=== PATIENT | female | born 1990 | race Two or more races ===

== ENCOUNTER 2020-12-16 17:18 | Emergency (ER) | payer SELFPAY ==
[~2020-12-16] VITALS: Ht 149.9 cm; Wt 96.3 kg
[2020-12-16 17:27] VITALS: BP 115/67
[2020-12-16] MEDS ORDERED: HYDROcodone/APAP 5/325MG 1 TAB TABLET PO ONE (17:45)
--- NOTE | 2020-12-16 18:18 | PHYS DOC ---
General Adult EDM: Chief Complaint: FOOT INJURY PAIN HPI: HPI: Patient is a 30-year-old female who presents with left foot pain. Patient states "my son threw a toy and hit me on the top of my left foot 3 weeks ago and the pain has not stopped". "Pain is worse when I try and walk or put pressure on my foot". "I thought that the pain would go away but it has not yet, it is a burning sensation". Patient denies taking any pain medication. Patient has full range of motion. Pedal pulses intact. No swelling noted. Patient has a history of diabetes and asthma. Review of Systems: Review of Systems: Constitutional: Denies fever or chills Eyes: Denies change in visual acuity HENT: Denies nasal congestion or sore throat Respiratory: Denies cough or shortness of breath Cardiovascular: Denies chest pain or edema GI: Denies abdominal pain, nausea, vomiting, bloody stools or diarrhea : Denies dysuria Musculoskeletal: Denies back pain or joint pain Integument: Denies rash Neurologic: Denies headache, focal weakness or sensory changes Endocrine: Denies polyuria or polydipsia Lymphatic: Denies swollen glands Psychiatric: Denies depression or anxiety Current Medications: Current Meds: Current Medications Medications (Trade) Dose Ordered Sig/Manuel Start Time Stop Time Status Last Admin Dose Admin Acetaminophen/ Hydrocodone Bitart (Lortab 5/325) 1 tab 1X ONCE 12/16/20 17:45 12/16/20 17:46 UNV Physical Exam: PE: Constitutional: Well developed, well nourished, no acute distress, non-toxic appearance. [] HENT: Normocephalic, atraumatic, bilateral external ears normal, oropharynx moist, no oral exudates, nose normal. [] Eyes: PERRLA, EOMI, conjunctiva normal, no discharge. [] Neck: Normal range of motion, no tenderness, supple, no stridor. [] Cardiovascular:Heart rate regular rhythm, no murmur [] Lungs & Thorax: Bilateral breath sounds clear to auscultation [] Abdomen: Bowel sounds normal, soft, no tenderness, no masses, no pulsatile masses. [] Skin: Warm, dry, no erythema, no rash. [] Back: No tenderness, no CVA tenderness. [] Extremities: Left foot tenderness, no cyanosis, ROM intact, no edema. [] Neurologic: Alert and oriented X 3, normal motor function, normal sensory functi on, no focal deficits noted. [] Psychologic: Affect normal, judgement normal, mood normal. [] EKG: EKG: [] Radiology/Procedures: Radiology/Procedures: []XR FOOT_LEFT 3 VIEWS dated 12/16/2020 5:50 PM. History: Reason: foot pain / Spl. Instructions: / History: No history of trauma is given. Comparison: None. Findings: No fracture or dislocation is seen. Joint spaces appear fairly well maintained. There is no apparent foreign body or destructive process. Impression: 1. No identified acute abnormality. Electronically signed by: Vj Hinton Jr., MD (12/16/2020 8:19 PM) [facility] Heart Score: C/O Chest Pain: No Risk Factors: Risk Factors: DM, Current or recent (<one month) smoker, HTN, HLP, family history of CAD, obesity. Risk Scores: Score 0 - 3: 2.5% MACE over next 6 weeks - Discharge Home Score 4 - 6: 20.3% MACE over next 6 weeks - Admit for Clinical Observation Score 7 - 10: 72.7% MACE over next 6 weeks - Early Invasive Strategies Course & Med Decision Making: Course & Med Decision Making Pertinent Labs and Imaging studies reviewed. (See chart for details) [] 30-year-old female presents with left foot pain for 3 weeks. Patient reports that her son threw a toy and hit her on the top of her left foot. Pain is worse with ambulation or bearing weight. Pedal pulses intact. No swelling. Patient has full range of motion. Patient given hydrocodone 5/325 for pain. X-ray of left foot is negative for fracture. Discussed x-ray results with patient. Rice instructions given. Advised patient to follow-up with her PCP if pain continues. Ibuprofen and Tylenol at home for discomfort. Patient is appreciative and okay with discharge plan. Maximino Disclaimer: Maximino Disclaimer: This electronic medical record was generated, in whole or in part, using a voice recognition dictation system. Departure Departure: Impression: Primary Impression: Foot pain, left Disposition: HOME / SELF CARE / HOMELESS Condition: STABLE Referrals: AUDREY LAURA MD (PCP) Patient Instructions: Foot Contusion, [id number], RICE - Routine Care for Injuries, [id number] Additional Instructions: You were seen in the emergency room for left foot pain. Your x-ray was negative for fracture. Take ibuprofen and Tylenol at home for pain. Rest, use ice, elevate to help with swelling and discomfort. Please return to emergency room with worsening symptoms or concerns. If you continue to have pain follow-up with your PCP for repeat imaging or you can return to the emergency room. EMERGENCY DEPARTMENT GENERAL DISCHARGE INSTRUCTIONS Thank you for coming to [facility] (ED) today and trusting us with you care. We trust that you had a positivie experience in our Emergency Department. If you wish to speak to the department management, you may call the director at [phone]. YOUR FOLLOW UP INSTRUCTIONS ARE FOLLOWS: 1. Do you have a private Doctor? If you do not have a private doctor, please ask for a resource list of physicians or clinics that may be able to assist you with follo w up care. 2. The Emergency Physician has interpreted your x-rays. The X-Ray specialist will also review them. If there is a change in the findings, you will be notified in 48 hours when at all possible. 3. A lab test or culture has been done, your results will be reviewed and you will be notified if you need a change in treatment. ADDITIONAL INSTRUCTIONS AND INFORMATION: 1. Your care today has been supervised by a physician who is specially trained in emergency care. Many problems require more than one evaluation for a complete diagnosis and treatment. We recommend that you schedule your follow up appointment as rec ommended to ensure complete treatment of you illness or injury. If you are unable to obtain follow up care and continue to have a problem, or if your condition worsens, we recommend that you return to the ED. 2. We are not able to safely determine your condition over the phone nor are we able to give sound medical advice over the phone. For these safety reasons, if you call for medical advice we will ask you to come to the ED for further evaluation. 3. If you have any questions regarding these discharge instructions please call the ED at [phone]. SAFETY INFORMATION: In the interest of safety, wellness, and injury prevention; we encourage you to wear your sealbelt, if you smoke; quite smoking, and we encourage family to use a protective helmet for bicycling and other sporting events that present an increased risk for head injury. IF YOUR SYMPTOMS WORSEN OR NEW SYMPTOMS DEVELOP, OR YOU HAVE CONCERNS ABOUT YOUR CONDITION; OR IF YOUR CONDITION WORSENS WHILE YOU ARE WAITING FOR YOUR FOLLOW UP APPOINTMENT; EITHER CONTACT YOUR PRIMARY CARE DOCTOR, THE PHYSICIAN WHOSE NAME AND NUMBER YOU WERE GIVEN, OR RETURN TO THE ED IMMEDIATELY. SHABANA MANZANARES APRN Dec 16, 2020 18:18
--- NOTE | 2020-12-16 20:21 | RAD ---
XR FOOT_LEFT 3 VIEWS dated 12/16/2020 5:50 PM. History: Reason: foot pain / Spl. Instructions: / History: No history of trauma is given. Comparison: None. Findings: No fracture or dislocation is seen. Joint spaces appear fairly well maintained. There is no apparent foreign body or destructive process. Impression: 1. No identified acute abnormality. Electronically signed by: Vj Hinton Jr., MD (12/16/2020 8:19 PM) [facility]
== END 2020-12-16 21:15 | disposition home or self-care (01) ==
LOC: ER 17:18
DX: M79.672 Pain in left foot (principal)
CPT/HCPCS: 73630; 99283